=== PATIENT | female | born 1995 | race Hispanic/Latino ===

== ENCOUNTER 2024-08-20 16:57 | Emergency (ER) | payer SELFPAY ==
[~2024-08-20] VITALS: Ht 157.5 cm; Wt 91.2 kg
[~2024-08-20 16:57] MED LIST: ACET1TAB12 PO; TRAM-543 PO
[2024-08-20] MEDS: DiphenhydrAMINE HCL 50 MG/ML VIAL IM ONE (17:46)
[2024-08-20] MEDS: dexaMETHasone SOD PHOSPHATE 4 MG/ML 1ML VIAL IM ONE (17:47)
[2024-08-20] MEDS ORDERED: METH4TAB3 PO (18:00)
[2024-08-20] MEDS ORDERED: DIPH-1242 PO (18:00)
[2024-08-20] MEDS ORDERED: CEPH500B PO (18:00)
--- NOTE | 2024-08-20 18:01 | ERN ---
General Chief Complaint: Insect Bite Stated Complaint: BEE STING Time Seen by MD: 17:08 Time Seen by Midlevel: 17:08 Source: patient History of Present Illness Initial Comments Patient is a 29-year-old female with no significant past medical history presenting to the emergency department for evaluation of a bee sting to her left forearm that occurred proximally two days ago. She was able to remove the stinger however over the last 48 hours there has been localize pain and redness to her left forearm. Denies any fever, chills, or any other symptoms at this time Allergies: Coded Allergies: No Known Drug Allergies (Verified Allergy, Severe, 09/13/14) Home Meds Active Scripts Tramadol HCl/Acetaminophen (Tramadol-Acetaminophn 37.5-325) 1 Each Tablet, 1 EACH PO q6hr PRN for PAIN, #25 TAB 0 Refills Prov:Alex CASAREZ MD 09/14/14 Reported Medications Acetaminophen with Codeine (Tylenol with Codeine #3 Tablet) 1 Each Tablet, 1-2 TAB PO Q4HPRN PRN for PAIN, #20 TAB 07/21/15 Past Medical History Past Medical History: No Pertinent History Past Surgical History: Appendectomy, ROS Dictation CONSTITUTIONAL: Negative except for HPI HEAD/FACE: Negative except for HPI EENT: Negative except for HPI RESPIRATORY: Negative except for HPI GASTROINTESTINAL/ABDOMINAL: Negative except for HPI GENITOURINARY: Negative except for HPI MUSCULOSKELETAL: Negative except for HPI INTEGUMENTARY: Negative except for HPI NEUROLOGICAL/PSYCH: Negative except for HPI HEMATOLOGIC/LYMPHATIC: Negative except for HPI All Systems Negative, Except as noted above. 13 point review of systems assessed and all negative except for above. Physical Exam Physical Exam Dictation Vital Signs reviewed General Appearance: Alert, oriented x 3, no acute distress, well developed, nourished. Head and Face: non-traumatic. Eyes: PERRL, pink conjunctivas, eyelid no trauma, anterior chamber with arcus senilis. Ears: Pinnas intact and no signs of trauma or erythema ear canals clear and no discharge TM no erythema Nose: No discharge, no bleeding. Oropharynx: Mouth normal, tongue pink, pharynx clear,no erythema, tonsils no exudates, no abscesses noted, mucous membrane moist Neck: Supple, non-tender, no thyromegaly, no masses, no JVD, no bruits Breast:Deferred Chest:No tenderness, no crepitus, no paradoxical movement, no retractions Lungs:Clear, well-ventilated, symmetric, no rales, no wheezing, no rhonchi, no stridor, good breath sounds bilaterally Heart: Regular rate, regular rhythm, no murmur, no gallops Vascular: no peripheral edema, Abdomen: Soft, positive bowel sounds, nondistended, no guarding, nontender, no rebound, no masses no hepatomegaly, no splenomegaly, no Hernandez's sign, no hernias. Rectal: Deferred Genital: Deferred Neurological: Normal speech, motor function intact, sensory function intact Musculoskeletal: Neck nontender, full range of motion, back nontender, full range of motion, Extremities: nontender, full range of motion Skin: Erythema to the left anterior forearm Lymphatic: Deferred MDM MDM: Differential diagnosis: Allergic reaction, insect bite, cellulitis, erysipelas There are no social concerns with this patient. Prescription drug management Prescriptions will include: Keflex, Benadryl, Medrol pack Medical management and examination interpretation discussions were had by me with other qualified healthcare professionals as indicated for the patient's care. ED Course Orders Procedure Category Date Status Time Dexamethasone 4mg/Ml PHA 08/20/24 Complete 1ml Vial (Dexametha 17:30 Diphenhydramine Hcl PHA 08/20/24 Complete (Benadryl Inj) 17:30 Current Medications Medications (Trade) Dose Ordered Sig/Yeison Route PRN Reason Start Time Stop Time Status Last Admin Dose Admin Dexamethasone Sodium Phosphate (dexaMETHasone 4MG/ML 1ML VIAL) 10 mg ONCE ONCE IM 08/20/24 17:30 08/20/24 17:35 DC Diphenhydramine HCl (BENAdryl INJ) 25 mg ONCE ONCE IM 08/20/24 17:30 08/20/24 17:35 DC Vital Signs Date Time Temp Pulse Resp B/P (MAP) Pulse Ox O2 Delivery O2 Flow Rate FiO2 08/20/24 17:00 97.9 94 16 131/91 100 Room Air 0 DX & DISP Disposition: Discharge Departure Impression: Primary Impression: Bee sting Condition: Stable Scripts Diphenhydramine HCl (Benadryl) 25 Mg Cap 25 MG PO BID for 5 Days, #10 CAP Prov: MARILYNN HAYNES 08/20/24 Cephalexin Monohydrate (Keflex) 500 Mg Cap 500 MG PO BID for 7 Days, #14 CAP Prov: MARILYNN HAYNES 08/20/24 Methylprednisolone (Medrol) 4 Mg Tab.ds.pk 1 TAB PO AD for 6 Days, #21 TAB 0 Refills 6 on day 1 then reduce by one tablet daily until gone Prov: MARILYNN HAYNES 08/20/24 Referrals: SELF,REFERRAL (PCP) Time of Disposition: 17:59 I have reviewed the case, and I agree with, Diagnosis and Plan I performed the substantive portion of the visit. I have reviewed and personally made and approve the management plan that is documented in the note by myself or the CLAY. I acknowledge for responsibility for the patient's management plan. MARILYNN HAYNES Aug 20, 2024 18:00
[2024-08-20 18:10] VITALS: BP 125/86; PULSE 85; RESP 16; TEMP 97.9; O2SAT 100
== END 2024-08-20 18:22 | disposition home or self-care (01) ==
LOC: EDH 16:57
DX: T63.441A Toxic effect of venom of bees, accidental (unintentional), initial encounter (principal); Z90.49 Acquired absence of other specified parts of digestive tract; Z79.899 Other long term (current) drug therapy; Z98.890 Other specified postprocedural states; Y92.89 Other specified places as the place of occurrence of the external cause
CPT/HCPCS: 99284; 96372 ×2; J1100; J1200